=== PATIENT | female | born 1940 | race Caucasian/White ===

== ENCOUNTER 2020-09-04 12:42 | Emergency (ER) | payer MEDICARE, OTHER ==
--- NOTE | 2020-09-04 14:15 | ER Document Report ---
ED Medical Screen (RME) - General Chief Complaint: Abdominal Pain Stated Complaint: ABDOMINAL PAIN Time Seen by Provider: 09/04/20 14:05 Primary Care Provider: CARI TAYLOR MD [Primary Care Provider] - Follow up as needed - HPI Notes: 09/04/20 14:14 79-year-old female to the emergency department with daughter with complaints of epigastric and right upper quadrant abdominal pain that is been getting worse for the past 2 weeks. She states that the pain would come and go but now is gotten a lot worse. She states that her pain gets worse or she eats and has been avoiding eating because of this. 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 Krista kelly denies any nausea or vomiting or diarrhea. She denies any fevers or chills. I performed a brief medical screening exam on the patient determined that the patient needs further evaluation and management by main side provider. I have placed initial orders to help expedite care. - Related Data Allergies/Adverse Reactions: No Known Allergies Allergy (Verified 09/04/20 14:04) Past Medical History - Social History Frequency of alcohol use: once a day Physical Exam - Vital signs Vitals: Temp Pulse Resp BP Pulse Ox 98.0 F 104 H 20 135/54 H 96 09/04/20 12:51 09/04/20 12:51 09/04/20 12:51 09/04/20 12:51 09/04/20 12:51 Course - Vital Signs Vital signs: Temp Pulse Resp BP Pulse Ox 98.0 F 104 H 20 135/54 H 96 09/04/20 12:51 09/04/20 12:51 09/04/20 12:51 09/04/20 12:51 09/04/20 12:51 Doctor's Discharge - Discharge Referrals: CARI TAYLOR MD [Primary Care Provider] - Follow up as needed
[2020-09-04 15:11] LABS: APPEARANCE,URINE CLOUDY; BILIRUBIN,URINE NEGATIVE (NEGATIVE); COLOR,URINE YELLOW; GLUCOSE, URINE NEGATIVE (NEGATIVE); KETONES,URINE 20 mg/dL (NEGATIVE); PROTEIN,URINE 30 mg/dL (NEGATIVE); URINE SPECIFIC GRAVITY 1.014; UROBILINOGEN,URINE NEGATIVE mg/dL (<2.0)
[2020-09-04 15:18] LABS: ABSOLUTE EOSINOPHILS # (AUTO) 0.1 10^3/uL (0.0-0.6); ABSOLUTE MONOCYTES (AUTO) 0.8 10^3/uL (0.1-1.4); ABSOLUTE NEUT (AUTO) 6.7 10^3/uL (1.7-8.2); BASOPHILS % (AUTO) 0.5 % (0-2); EOSINOPHILS % (AUTO) 0.6 % (0-6); HEMATOCRIT 39.9 % (36.0-47.0); HEMOGLOBIN 13.9 g/dL (12.0-15.5); LYMPHOCYTES % (AUTO) 11.6 % (13-45); MEAN CORPUSCULAR HEMOGLOBIN 33.4 pg (27.0-33.4); MEAN CORPUSCULAR HGB CONC 34.7 g/dL (32.0-36.0); MEAN CORPUSCULAR VOLUME 96 fl (80-97); MONOCYTES % (AUTO) 9.6 % (3-13); PLATELET COUNT 211 10^3/uL (150-450); RED BLOOD COUNT 4.15 10^6/uL (3.72-5.28); SEGMENTED NEUTROPHILS % (AUTO) 77.7 % (42-78); TOTAL CELLS COUNTED % (AUTO) 100 %; WHITE BLOOD COUNT 8.6 10^3/uL (4.0-10.5)
[2020-09-04 15:34] LABS: ALBUMIN 4.1 g/dL (3.5-5.0); ALKALINE PHOSPHATASE 86 U/L (38-126); ANION GAP 10 (5-19); ASPARTATE AMINO TRANSFERASE 16 U/L (14-36); BILIRUBIN,DIRECT 0.4 mg/dL (0.0-0.4); BILIRUBIN,TOTAL 0.9 mg/dL (0.2-1.3); BLOOD UREA NITROGEN 18 mg/dL (7-20); CALCIUM 9.3 mg/dL (8.4-10.2); CARBON DIOXIDE 29 mmol/L (22-30); CHLORIDE 98 mmol/L (98-107); GLUCOSE 100 mg/dL (75-110); POTASSIUM 4.4 mmol/L (3.6-5.0)
--- NOTE | 2020-09-04 18:12 | RADIOLOGY REPORT (SQ) ---
EXAM DESCRIPTION: CTA ABDOMEN/PELVIS W WO IMAGES COMPLETED DATE/TIME: 09/04/2020 5:50 pm REASON FOR STUDY: abd pain, worse after eating COMPARISON: None. TECHNIQUE: CT scan of the abdominal aorta extending to the iliac bifurcation performed with intraven ous contrast using helical scanning technique with dynamic intravenous contrast injection. Images rev iewed with lung, soft tissue, and bone windows. Reconstructed coronal and sagittal MPR images reviewe d. All images stored on PACS. Advanced 3D imaging as volume rendering, MIPS, SSD performed? yes All CT scanners at this facility use dose modulation, iterative reconstruction, and/or weight based d osing when appropriate to reduce radiation dose to as low as reasonably achievable (ALARA). [facility]: Dose Right [facility]: CareDose [facility]: Dose Right [facility]: Teradose 4D [facility]: Molecular Imprints CONTRAST TYPE AND DOSE: contrast/concentration: Isovue 350.00 mmol/ml; Total Contrast Delivered: 100 .0 ml; Total Saline Delivered: 71.0 ml RENAL FUNCTION: GFR > 60. LIMITATIONS: None. 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 Mild -moderate nancy nosis in the proximal right renal artery. Moderate atherosclerotic disease throughout. No aneurysm. No dissection. Left Renal arteries, celiac without stenosis. LUNG BASES: No acute findings. Minimal linear subsegmental atelectasis -subpleural scarring in the l ingula and right middle lobe. . LIVER: Normal size. No masses or dilated ducts. SPLEEN: Normal size. No focal lesions. PANCREAS: No masses. No significant calcifications. No adjacent inflammation or peripancreatic fluid collections. Pancreatic duct not dilated. GALLBLADDER: No identified stones by CT criteria. No inflammatory changes to suggest cholecystitis. ADRENAL GLANDS: No significant masses or asymmetry. RIGHT KIDNEY AND URETER: Heterogeneous appearance of the right renal cortex with numerous cortical h ypodensities and mild adjacent inflammatory changes suggesting pyelonephritis. No calculi or urinary tract obstruction. LEFT KIDNEY AND URETER: No calculi or urinary tract obstruction. RETROPERITONEUM: No retroperitoneal adenopathy, hemorrhage or masses. BOWEL AND PERITONEAL CAVITY: No masses or inflammatory changes. No free fluid or peritoneal masses. APPENDIX: Normal. ABDOMINAL WALL: No masses. No hernias. BONY STRUCTURES: No significant or acute findings. 3-D IMAGING: Confirms the above findings. OTHER: No other significant finding. IMPRESSION: Heterogeneous appearance of the right renal cortex with numerous cortical hypodensities and mild adjacent inflammatory changes suggesting pyelonephritis. No urinary tract obstruction. 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 Mild -moderate stenosis in the proximal right sh[place] al artery. TECHNICAL DOCUMENTATION: JOB ID: [id number] [place]-72 Quality ID # [id number]: Final reports with documentation of one or more dose reduction techniques (e.g., Au tomated exposure control, adjustment of the mA and/or kV according to patient size, use of iterative reconstruction technique) 2010 [employer]- All Rights Reserved Reading location - IP/workstation name: [employer]
--- NOTE | 2020-09-04 18:19 | ER Document Report ---
ED GI/ - General Chief Complaint: Abdominal Pain Stated Complaint: ABDOMINAL PAIN Time Seen by Provider: 09/04/20 14:05 Primary Care Provider: CARI TAYLOR MD [Primary Care Provider] - Follow up in 3-5 days - [facility] Notes: 09/04/20 18:09 Patient is a 79-year-old female with a past medical history of memory issues and COPD who presents with abdominal pain. Patient states she has had chronic abdominal pain that is vague. Her doctor told her that she had stenosis of abdominal vessels in the past that did not require surgery. However, the past 2 weeks she states that the pain worsened. She states it is continuous and different than her chronic pain. She describes it as pain in the right lower quadrant. It is worse with moving. She denies loss of appetite. Pain is not worse with eating or drinking. She has some slight nausea. No vomiting. No diarrhea. No fevers. She denies dysuria but states that her urine has appeared darker and she questioned whether or not she had a UTI today. Patient states Aleve sometimes helps her pain. She has not had any abdominal surgeries. 09/04/20 22:44 09/04/20 22:50 - Related Data Allergies/Adverse Reactions: No Known Allergies Allergy (Verified 09/04/20 14:04) Past Medical History - General Information source: Patient - Social History Smoking Status: Never Smoker Frequency of alcohol use: once a day Family History: Reviewed & Not Pertinent Review of Systems - Review of Systems Notes: CONSTITUTIONAL: No fever, fatigue or weight loss. SKIN: No rash. HENT: No congestion, ear pain, or sore throat. EYES: No recent vision problems or eye pain. ENDOCRINE: No thyroid problems. No polyuria or polydipsia. CARDIOVASCULAR: No chest pain or edema. RESPIRATORY: No cough, shortness of breath, congestion, or wheezing. GASTROINTESTINAL: No vomiting, bloody stools or diarrhea. Positive for right lower quadrant abdominal pain and nausea. GENITOURINARY: No dysuria. MUSCULOSKELETAL: No joint pain or swelling. LYMPHATIC: No swollen glands. NEUROLOGIC: No seizures. No headache, focal weakness or sensory changes. HEMATOLOGIC: No unusual bruising or bleeding. PSYCHIATRIC: No depression or anxiety. Physical Exam - Vital signs Vitals: Temp Pulse Resp BP Pulse Ox 98.0 F 104 H 20 135/54 H 96 09/04/20 12:51 09/04/20 12:51 09/04/20 12:51 09/04/20 12:51 09/04/20 12:51 - General General appearance: Appears well Notes: VITAL SIGNS: Within normal limits. GENERAL: No acute distress, non-toxic appearance. HEAD: Normal with no signs of head trauma. EYES: EOMI, conjunctiva normal, no discharge. EARS: Hearing grossly intact. NOSE: Normal. NECK: Normal range of motion, no tenderness, supple, no lymphadenopathy, No adenopathy, no JVD. CHEST: Clear breath sounds bilaterally. No wheezes, rales, or rhonchi. CARDIAC: Regular rate and rhythm. S1 and S2, without murmurs, gallops, or rubs. VASCULAR: No Edema. ABDOMEN: Normal and soft. Discomfort to palpation of right lower quadrant. No guarding. No rigidity. GASTROINTESTINAL: Bowel sounds normal GENITOURINARY: Normal, No tenderness LYMPATHTIC: No lymphadenopathy noted. MUSCULOSKELETAL: Good range of motion of all major joints. Extremities without clubbing, cyanosis or edema. NEUROLOGICAL: Alert and oriented x 3. No focal sensory or strength deficits. Speech normal. Follows commands appropriately. PSYCHIATRIC: Normal Affect, judgement and mood. SKIN: Normal appearance with no rashes or lesions. Course - Re-evaluation Re-evalutation: 09/04/20 18:12 Patient appears well on exam. Her vital signs are within normal limits. Her urine is suspicious for UTI with positive nitrates, bacteria, leukocyte esterase. Patient states she does not need anything for pain or nausea. Patient's lab work is unremarkable. Her lactic acid is normal. 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 Patient states this has been chronic. She is unsure if this is worse than normal. She denies any abdominal pain with eating. She has a normal appetite. She is drinking water in the room. Her CTA also shows evidence of pyelonephritis on the right side. Patient was given Rocephin in the ED. I did discuss with her possible admission versus discharge home. Patient states that she is eating well, has no nausea or vomiting or fevers and she would like to go home. I did give her strict return precautions including loss of appetite, vomiting, fevers, worsening symptoms and patient verbalized understanding. She was instructed to follow-up with her PCP to follow-up about the stenosis for possible vascular ref erral as well as ensure that the pyelonephritis has resolved. Patient and her daughter are very agreeable to the plan. 09/04/20 22:53 - Vital Signs Vital signs: Temp Pulse Resp BP Pulse Ox 98.1 F 84 15 128/70 H 99 09/04/20 20:10 09/04/20 20:10 09/04/20 20:10 09/04/20 20:10 09/04/20 20:10 - Laboratory Result Diagrams: 09/04/20 15:00 09/04/20 15:00 Laboratory results interpreted by me: 09/04/20 09/04/20 14:25 15:00 Lymph % (Auto) 11.6 L Urine Protein 30 H Urine Ketones 20 H Urine Blood SMALL H Urine Nitrite (Reflex) POSITIVE H Leukocyte Esterase Rfl LARGE H - Diagnostic Test Radiology reviewed: Image reviewed, Reports reviewed Discharge - Discharge Clinical Impression: Pyelonephritis Abdominal pain Qualifiers: Abdominal location: right lower quadrant Qualified Code(s): R10.31 - Right lower quadrant pain Condition: Stable Disposition: HOME, SELF-CARE Instructions: Abdominal Pain ([facility]), Pyelonephritis ([facility]) Additional Instructions: Please follow-up with your family doctor to ensure resolution of the urinary tract infection and pyelonephritis. Please take your antibiotics as prescribed. Return to the ER immediately if you have fevers, vomiting, nausea, chills, worsening symptoms. Your CAT scan today showed that you have moderate to high-grade stenosis of your SMA and mild to moderate stenosis of your right renal artery. Please follow-up with your family doctor as you stated that you have had this before to make sure that it is not worsening. Return to the ER for any abdominal pain, fevers, other concerning symptoms. Prescriptions: Cephalexin [Cephalexin 500 MG Tablet] 500 mg PO BID 14 Days #28 tablet Ondansetron [Zofran Odt 4 mg Tablet] 4 mg PO Q6H PRN 5 Days #10 tab.rapdis PRN Reason: Referrals: CARI TAYLOR MD [Primary Care Provider] - Follow up in 3-5 days
[2020-09-04] MEDS ORDERED: CEFTRIAXONE 1 GM/D5W RTU 1 GM/50 ML RTUPB IV ONE (19:07)
[2020-09-04 20:11] VITALS: BP 128/70
== END 2020-09-04 20:10 | disposition home or self-care (01) ==
LOC: ER 12:42
DX: N12 Tubulo-interstitial nephritis, not specified as acute or chronic (principal); R10.31 Right lower quadrant pain; J44.9 Chronic obstructive pulmonary disease, unspecified
CPT/HCPCS: 99285; 96365; 36415; 87040; 87086; 83605; 83690; 85025; 87088; 80053; 81001; 74174; J0696; 87186